=== PATIENT | female | born 1960 | race Caucasian/White ===

== ENCOUNTER 2016-11-21 10:57 | Emergency (ER) | payer MEDICAID ==
[~2016-11-21] VITALS: Ht 152.4 cm; Wt 76.2 kg
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
[2016-11-21] MEDS ORDERED: ACETAMINOPHEN ES 500 MG TABLET PO ONE (11:30)
[2016-11-21] MEDS ORDERED: ACETAMINOPHEN ES 500 MG TABLET ONE (11:43)
--- NOTE | 2016-11-21 11:47 | NUR ---
PT TO CT
[2016-11-21 12:20] VITALS: BP 132/68
== END 2016-11-21 12:20 | disposition home or self-care (01) ==
LOC: ER 11:00
DX: S00.03XA Contusion of scalp, initial encounter (principal); S00.83XA Contusion of other part of head, initial encounter; M25.512 Pain in left shoulder; I10 Essential (primary) hypertension; Z88.5 Allergy status to narcotic agent; W01.198A Fall on same level from slipping, tripping and stumbling with subsequent striking against other object, initial encounter; Y92.89 Other specified places as the place of occurrence of the external cause; Y93.89 Activity, other specified; Y99.8 Other external cause status
CPT/HCPCS: 70450; 72110; 73030; 99284; A4606; Z7610

== ENCOUNTER 2021-06-18 15:20 | Emergency (ER) | payer MEDICAID ==
[~2021-06-18] VITALS: Ht 157.5 cm; Wt 89.5 kg
[2021-06-18 15:33] VITALS: BP 154/92
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
--- NOTE | 2021-06-18 16:05 | NUR ---
IRRIGATION DONE BY RESIDENCE COUNSELOR.
--- NOTE | 2021-06-18 16:11 | NUR ---
Patient discharged to home in stable condition. Written and verbal after care instructions given. Patient verbalizes understanding of instruction.
== END 2021-06-18 16:12 | disposition home or self-care (01) ==
LOC: ER 15:24
DX: T16.1XXA Foreign body in right ear, initial encounter (principal); I10 Essential (primary) hypertension; Z88.6 Allergy status to analgesic agent; X58.XXXA Exposure to other specified factors, initial encounter; Y93.89 Activity, other specified; Y92.89 Other specified places as the place of occurrence of the external cause; Y99.8 Other external cause status
CPT/HCPCS: 99282; A6403